=== PATIENT | male | born 1970 | race Caucasian/White ===

== ENCOUNTER 2017-11-15 05:55 | Outpatient (CLI) | payer OTHER ==
[2017-12-26 13:51] VITALS: BMI 33.6
== END 2017-11-15 08:45 ==
LOC: D.OPS 05:55
DX: K21.0 Gastro-esophageal reflux disease with esophagitis (principal)

== ENCOUNTER 2017-12-26 04:59 | Inpatient (IN) | payer MEDICAID ==
[~2017-12-26] VITALS: Ht 172.7 cm; Wt 100.5 kg
--- NOTE | ~2017-12-26 | OP ---
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 I assisted Dr. ANDRIA Mckeon with laparoscopic Toupet fundoplication and hiatal hernia repair. My involvement in the case included some running of the camera. Placement of the lateral 2 most trocar sites. Retraction of tissue. I took down the short gastrics with the Harmonic scalpel energy device. I dissected out the left asha. I did some of the mediastinal dissection bluntly and with the Harmonic scalpel. At no time was there any apparent injury to the esophagus. I did perform some esophageal retraction, so that Dr. Mckeon could perform the hiatal hernia repair. I then brought the fundus of the stomach around posterior to the esophagus. I removed the cardial fat pad with the Harmonic scalpel. I assisted with retraction during the time that Dr. Mckeon was sewing the Toupet fundoplication. I then scrubbed out as the trocars were being removed. 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
[2017-12-26 05:55] LABS: BASOPHILS 0.2 % (0-2); EOSINOPHILS 1.8 % (0-7); HEMATOCRIT 43.7 % (42.0-54.0); HEMOGLOBIN 15.5 g/dL (13.5-17.5); IMMATURE GRANULOCYTES 0.1 % (0-5); LYMPHOCYTES 36.5 % (15-50); MCH 30.6 pg (26.0-34.0); MCHC 35.5 g/dL (31.0-37.0); MCV 86.4 fL (80.0-100.0); MEAN PLATELET VOLUME 9.9 fL (7.4-10.4); MONOCYTES 9.8 % (2-11); NEUTROPHILS 51.6 % (40-80); PLATELET COUNT 249 10x3/uL (130-400); RBC 5.06 10x6/uL (4.20-6.10); RDW 13.9 % (11.5-14.5); WBC 8.8 10x3/uL (4.8-10.8)
[2017-12-26 06:12] LABS: CALC OSMOLALITY 279 mosm/kg (275-300); CALCIUM 8.7 mg/dL (8.5-10.1); CARBON DIOXIDE 25.8 mmol/L (21.0-32.0); CHLORIDE - SERUM 102 mmol/L (98-107); GLUCOSE 113 mg/dL (74-106); POTASSIUM - SERUM 3.6 mmol/L (3.5-5.1); SODIUM 139 mmol/L (136-145); UREA NITROGEN 16 mg/dL (7-18); eGFR NON AFRICAN AMERICAN 85 mL/min (90-120)
[2017-12-26] MEDS ORDERED: GLUCOPHAGE1000 MG PO (06:19)
[2017-12-26] MEDS ORDERED: ZESTRIL40 MG PO (06:20)
[2017-12-26] MEDS ORDERED: CHLORTHALIDONE25 MG PO (06:21)
[2017-12-26] MEDS ORDERED: GLIPIZIDE10 MG PO (06:22)
[2017-12-26] MEDS ORDERED: CYMBALTA30 MG PO (06:22)
[2017-12-26] MEDS ORDERED: OMEPRAZOLE20 M1 PO (06:23)
[2017-12-26] MEDS ORDERED: ZOCOR20 MG PO (06:24)
[2017-12-26] MEDS ORDERED: QVAR8.7 G1 INH (06:24)
[2017-12-26] MEDS ORDERED: ZANAFLEX2 M1 PO (06:25)
[2017-12-26 06:36] VITALS: BP 117/70; BMI 33.6
[2017-12-26 11:19] VITALS: BP 123/68
[2017-12-26 13:51] VITALS: BP 103/64; Ht 172.7 cm; Wt 100.5 kg
[2017-12-26 16:49] VITALS: BP 114/66
[2017-12-26 20:20] VITALS: BP 132/77
[2017-12-27 01:02] VITALS: BP 134/74
[2017-12-27 04:22] VITALS: BP 124/64
[2017-12-27 07:16] LABS: BASOPHILS 0.4 % (0-2); EOSINOPHILS 1.8 % (0-7); HEMOGLOBIN 13.5 g/dL (13.5-17.5); IMMATURE GRANULOCYTES 0.1 % (0-5); LYMPHOCYTES 17.9 % (15-50); MCH 30.3 pg (26.0-34.0); MCHC 34.6 g/dL (31.0-37.0); MCV 87.6 fL (80.0-100.0); MEAN PLATELET VOLUME 9.6 fL (7.4-10.4); MONOCYTES 11.5 % (2-11); NEUTROPHILS 68.3 % (40-80); RBC 4.45 10x6/uL (4.20-6.10); RDW 13.8 % (11.5-14.5)
[2017-12-27 07:17] LABS: PLATELET COUNT 194 10x3/uL (130-400)
[2017-12-27 07:49] LABS: ALBUMIN 3.1 g/dL (3.4-5.0); ALKALINE PHOSPHATASE 37 U/L (46-116); ALT (SGPT) 128 U/L (10-68); CALC OSMOLALITY 277 mosm/kg (275-300); CALCIUM 8.1 mg/dL (8.5-10.1); CHLORIDE - SERUM 102 mmol/L (98-107); GLUCOSE 134 mg/dL (74-106); POTASSIUM - SERUM 3.4 mmol/L (3.5-5.1); PROTEIN - SERUM 5.8 g/dL (6.4-8.2); SODIUM 138 mmol/L (136-145); UREA NITROGEN 12 mg/dL (7-18); eGFR NON AFRICAN AMERICAN 85 mL/min (90-120)
[2017-12-27] MEDS ORDERED: HYDROCODON-ACE1 EAC7 PO (08:21)
[2017-12-27 12:35] VITALS: BP 132/85
== END 2017-12-27 18:33 | DRG 328 ==
LOC: D.OPS 04:59 → D.MS 10:46 → D.OPS 11:04 → D.MS 11:04
PROVIDERS: Anesthesiology; Surgery
PROC: 0BQT4ZZ Repair Diaphragm, Percutaneous Endoscopic Approach (ICD-10-PCS; 2017-12-26)
PROC: 0DV44ZZ Restriction of Esophagogastric Junction, Percutaneous Endoscopic Approach (ICD-10-PCS; principal; 2017-12-26 08:00)
DX: K21.0 Gastro-esophageal reflux disease with esophagitis (principal); K44.9 Diaphragmatic hernia without obstruction or gangrene